=== PATIENT | female | born 1960 | race Asian ===

== ENCOUNTER 2021-02-08 17:32 | Emergency (ER) | payer OTHER ==
[~2021-02-08] VITALS: Ht 160 cm; Wt 53.5 kg
[2021-02-08 17:52] VITALS: BP 143/108
--- NOTE | 2021-02-08 18:16 | NUR ---
60YO F BIB SON C/O HEADACHE AND DIZZINESS X 8 HRS. PT ALSO COMPLAINS OF VOMITING AFTER MEAL. TOOK MECLIZINE 25MG WHICH PROVIDED MILD RELIEF. PATIENT SPEAKS TERESA, [place]&NADEEN, VSS. PMH: NONE MEDS: NONE NKA
--- NOTE | 2021-02-08 18:20 | NUR ---
AT BEDSIDE [facility] #[id number].
[2021-02-08] MEDS ORDERED: MECLIZINE 25 MG TAB PO ONE (18:45)
[2021-02-08 19:05] LABS: BASOPHILS % (AUTO) 0.3 % (0.0-2.0); EOSINOPHILS % (AUTO) 0.1 % (0.0-4.0); HEMATOCRIT 40.3 % (36-48); HEMOGLOBIN 13.3 g/dL (12.0-16.0); LYMPHOCYTES # (AUTO) 0.6 K/uL (2.5-16.5); LYMPHOCYTES % (AUTO) 7.5 % (20.5-51.1); MEAN CORPUSCULAR HEMOGLOBIN 30 pg (27-31); MEAN CORPUSCULAR HGB CONC 33 g/dL (33-37); MEAN CORPUSCULAR VOLUME 89.8 fL (80-94); MONOCYTES # (AUTO) 0.1 K/uL (0.8-1.0); MONOCYTES % (AUTO) 1.8 % (1.7-9.3); NEUTROPHILS # (AUTO) 7.2 K/uL (1.8-7.7); NEUTROPHILS % (AUTO) 90.3 % (42.2-75.2); PLATELET COUNT (AUTO) 201 K/uL (140-450); RED BLOOD CELL COUNT(AUTO) 4.49 MIL/uL (4.20-5.40); RED CELL DISTRIBUTION WIDTH 14.2 % (11.6-13.7)
[2021-02-08 19:19] LABS: CARBON DIOXIDE 28.1 mmol/L (21-32); CREATININE 0.7 mg/dL (0.6-1.3); POTASSIUM 4.1 mmol/L (3.5-5.1)
--- NOTE | 2021-02-08 19:21 | NUR ---
PER ERMD 12 LEAD WAS DONE ON PT AND CAME BACK NSR AT 65 HR.
--- NOTE | 2021-02-08 19:22 | NUR ---
URINE SAMPLE COLLECTED GIVEN TO COMMODITY SUPERVISOR
--- NOTE | 2021-02-08 19:26 | NUR ---
REPORT AND CONTINUATION OF CARE GIVEN TO LAZARA GATICA.
[2021-02-08 19:41] LABS: APPEARANCE,URINE CLEAR (CLEAR); BILIRUBIN,URINE NEGATIVE (NEGATIVE); BLOOD, URINE NEGATIVE (NEGATIVE); COLOR,URINE YELLOW (YELLOW); LEUKOCYTE ESTERASE ,URINE NEGATIVE (NEGATIVE); NITRITE, URINE NEGATIVE (NEGATIVE); UGLUCOSE NEGATIVE (NEGATIVE)
[2021-02-08 19:47] VITALS: BP 129/86
--- NOTE | 2021-02-08 19:47 | NUR ---
SON AT BEDSIDE, ABLE TO TRANSLATE FOR PATIENT
[2021-02-08] MEDS ORDERED: MECL-303 PO (19:51)
--- NOTE | 2021-02-08 20:18 | NUR ---
CLEARED FOR DISCHARGE AT THIS TIE. DISCHARGE TEACHING PROOVIDED AND SON TRANSLATED. NO FURTHER QUESTIONS.
== END 2021-02-08 20:18 | disposition home or self-care (01) ==
LOC: MED 17:32
DX: H81.399 Other peripheral vertigo, unspecified ear (principal); R11.10 Vomiting, unspecified
CPT/HCPCS: 36415; 71045; 80048; 81003; 84484; 85025; 93005; 99285; J8597